=== PATIENT | female | born 1965 | race Caucasian/White ===

== ENCOUNTER → 2017-03-07 | Outpatient (CLI) | payer OTHER, BC | END | disposition home or self-care (01) | LOC: MA 09:37 | PROC: BH02ZZZ Plain Radiography of Bilateral Breasts (ICD-10-PCS; principal; 2017-03-07) | DX: Z12.39 Encounter for other screening for malignant neoplasm of breast (principal) | CPT/HCPCS: G0202 ==

== ENCOUNTER → 2017-03-22 | Outpatient (CLI) | payer OTHER, BC | END | disposition home or self-care (01) | LOC: MA 12:33 | PROC: BH00ZZZ Plain Radiography of Right Breast (ICD-10-PCS; principal; 2017-03-22) | DX: R92.8 Other abnormal and inconclusive findings on diagnostic imaging of breast (principal) | CPT/HCPCS: G0206 ==